=== PATIENT | male | born 1985 | race African-American/Black ===

== ENCOUNTER 2023-12-18 10:30 | Day surgery (SDC) | payer OTHER ==
[2023-12-13 15:46] LABS: BASOPHILS # (AUTO) 0.1 X10'3 (0-0.2); BASOPHILS % (AUTO) 0.6 % (0-1); EOSINOPHILS # (AUTO) 0.2 X10'3 (0-0.9); EOSINOPHILS % (AUTO) 2.7 % (0-6); HEMATOCRIT 43.4 % (42.0-52.0); HEMOGLOBIN 14.5 g/dl (14.0-17.9); LYMPHOCYTES # (AUTO) 2.9 X10'3 (1.1-4.8); MEAN CORPUSCULAR HEMOGLOBIN 32.3 PG (27.0-31.0); MEAN CORPUSCULAR HGB CONC 33.4 g/dL (33.0-36.5); MEAN CORPUSCULAR VOLUME 96.8 FL (78-98); MEAN PLATELET VOLUME 9.5 FL (7.4-10.4); MONOCYTES # (AUTO) 0.7 X10'3 (0-0.9); NEUTROPHILS # (AUTO) 4.7 X10'3 (1.8-7.7); NEUTROPHILS % (AUTO) 54.7 % (42-75); PLATELET COUNT 151 X10'3 (140-440); RED BLOOD COUNT 4.49 X10'6 (4.70-6.10); RED CELL DISTRIBUTION WIDTH 14.6 % (11.5-14.5); WHITE BLOOD COUNT 8.5 X10'3 (4.5-11.0)
[2023-12-13 15:55] LABS: ALANINE AMINOTRANSFERASE 28 U/L (12-78); ALBUMIN/GLOBULIN RATIO 1.1 (1.1-1.5); ALKALINE PHOSPHATASE 56 IU/L (46-116); ANION GAP 8 (8-16); ASPARTATE AMINO TRANSFERASE 15 U/L (10-37); BILIRUBIN,TOTAL 0.4 MG/DL (0.1-1.0); BLOOD UREA NITROGEN 13 MG/DL (7-18); BUN/CREATININE RATIO 11.8 (10.0-20.0); CALCIUM 8.7 MG/DL (8.5-10.1); CHLORIDE 105 MMOL/L (99-107); GLUCOSE 83 MG/DL (70-104); POTASSIUM 3.7 MMOL/L (3.5-5.1); SODIUM 141 MMOL/L (135-145); TOTAL CARBON DIOXIDE 27.8 MMOL/L (24-32); TOTAL PROTEIN 7.5 G/DL (6.4-8.2); eGFR > 90 ML/MIN
[~2023-12-18] VITALS: Ht 185.4 cm; Wt 76.7 kg
[2023-12-18] VITALS (11 sets, daily range): BP systolic 111–132; BP diastolic 71–94; PULSE 43–78; RESP 10–16; TEMP 97.8; O2SAT 96–100
[2023-12-18] MEDS: cefazolin 2gm/D5W 100mL 100 ML IV ONE (05:30)
[~2023-12-18 10:30] MED LIST: NO HOME MEDS; albuterol 2.5 MG/3 ML nebule NEB ONE
[2023-12-18 11:42] LABS: BILIRUBIN,URINE SMALL (Neg); CLARITY,URINE CLEAR (Clear); COLOR,URINE AMBER (Yellow); GLUCOSE, URINE NEGATIVE (Neg); KETONES,URINE TRACE mg/dl (Neg); LEUKOCYTE ESTERASE ,URINE NEGATIVE (Neg); NITRITES, URINE NEGATIVE (Neg); OCCULT BLOOD,URINE NEGATIVE (Neg); PH,URINE 6.5 (4.8-8.0); PROTEIN,URINE TRACE mg/dl (Neg)
[2023-12-18 11:43] LABS: UA COLLECTION TYPE VOIDED
[2023-12-18] MEDS: famotidine 20mg tablet PO ONE (11:44)
[2023-12-18] MEDS ORDERED: BUPIVAcaine 2.5mg/ml inj 50ml vial (contains preservative) ONE (11:47)
[2023-12-18 11:49] LABS: WBC,URINE 0-4 /HPF (0-4)
[2023-12-18 11:50] LABS: MUCUS STRANDS MODERATE /LPF (Neg); SQUAMOUS EPITHELIAL CELL,UR FEW /LPF (FEW); TRANSITIONAL EPI CELLS,URINE FEW /HPF
[2023-12-18 11:51] LABS: BACTERIA,URINE FEW /HPF (Neg)
[2023-12-18] MEDS ORDERED: fentaNYL/PF 50MCG/1 ML 2ML syringe ONE ×2 (11:52→14:07)
[2023-12-18] MEDS ORDERED: ROPIVAcaine 0.5% (5mg/ml) 30ml vial ONE (11:53)
[2023-12-18] MEDS ORDERED: acetaminophen 1,000mg/100ml IV 100 ML IV ONE (11:53)
[2023-12-18] MEDS ORDERED: midazolam 1 mg/ML 2ml injection ONE (11:53)
[2023-12-18] MEDS ORDERED: LIDOcaine 2% (20mg/ml) 5ml vial ONE (11:53)
[2023-12-18] MEDS ORDERED: propofol inj 20 ML IV ONE (11:53)
[2023-12-18 11:55] LABS: PRE OP INR 1.1 INR; PRE OP PROTIME 11.7 SECONDS (9.0-12.0)
[2023-12-18] MEDS ORDERED: ondansetron/PF 4mg/2ml inj ONE (11:55)
[2023-12-18] MEDS ORDERED: hydrALAZINE 20mg/ml inj. IV PRN (12:05)
[2023-12-18] MEDS ORDERED: ondansetron/PF 4mg/2ml inj IV PRN (12:05)
[2023-12-18] MEDS ORDERED: labetalol 20mg/4ml (5mg/ml) syringe IV PRN (12:05)
[2023-12-18] MEDS ORDERED: fentaNYL/PF 50MCG/1 ML 2ML syringe IV PRN (12:05)
[2023-12-18] MEDS ORDERED: sevoflurane 250ml liquid IH ONE (12:10)
[2023-12-18] MEDS: bacitracin 15gm ointment TP ONE (13:26)
[2023-12-18] MEDS: morphine 2 MG/ML inj. syringe IV PRN (14:46)
[2023-12-18] MEDS: morphine 4 MG/ML inj SYRINge IV PRN (14:52)
[2023-12-18] MEDS: ringers solution, lacted 1,000 ML IV SCH (14:56)
[2023-12-18] MEDS: fentaNYL/PF 50MCG/1 ML 2ML syringe IV PRN (14:58)
[2023-12-18] MEDS: enoxaparin 40mg/0.4ml syringe SUBCUT ONE (15:38)
[2023-12-18] MEDS: oxyCODONE/APAP 10/325mg tablet PO ONE (15:39)
== END 2023-12-18 16:15 | disposition home or self-care (01) ==
LOC: PAS 10:30
PROVIDERS: ATTEND Podiatrist Foot & Ankle Surgery
DX: S86.312A Strain of muscle(s) and tendon(s) of peroneal muscle group at lower leg level, left leg, initial encounter (principal); M76.822 Posterior tibial tendinitis, left leg; G89.18 Other acute postprocedural pain; F12.90 Cannabis use, unspecified, uncomplicated; Z86.711 Personal history of pulmonary embolism; Z79.01 Long term (current) use of anticoagulants; Z98.890 Other specified postprocedural states; X58.XXXA Exposure to other specified factors, initial encounter; Y93.89 Activity, other specified; Y92.89 Other specified places as the place of occurrence of the external cause; Y99.8 Other external cause status
CPT/HCPCS: 27691; 28200; 28300; 36415; 64450; 73650; 80053; 81001; 82948; 85025; 85610; 85730; 93005; A6222; C1713; J0131; J0690; J1100; J1650; J2250; J2270; J2405; J2704; J2795; J3010; J3490; J7030; J7120; Z7506; Z7508; Z7512; 76000; A4618; A6253; A6446; A6449; A6455; A7000; C1769